=== PATIENT | female | born 1940 | race Caucasian/White ===

== ENCOUNTER 2021-09-05 04:56 | Observation (INO) ==
--- NOTE | 2021-04-29 11:49 | PAT Medication Instructions ---
Medication Instructions Date of Service April 29, 2021 Home Medications amlodipine 10 mg tablet 10 mg PO PM gnhxriq-dhwxhtsmi-ytpw tablet 1 tab PO PM esomeprazole magnesium 20 mg capsule,delayed release (Nexium) 40 mg PO QAM hydrochlorothiazide 25 mg tablet 25 mg PO QAM ibuprofen 200 mg tablet 600 mg PO BID levothyroxine 88 mcg tablet 88 mcg PO QAM linagliptin 5 mg tablet (Tradjenta) 5 mg PO QAM losartan 100 mg tablet 100 mg PO QAM metformin 500 mg tablet 1,000 mg PO BID multivitamin 1 tab PO QAM rosuvastatin 10 mg tablet 10 mg PO PM ASK your surgeon for instructions ibuprofen 200 mg tablet 600 mg PO BID DO NOT take the morning of surgery multivitamin 1 tab PO QAM metformin 500 mg tablet 1,000 mg PO BID losartan 100 mg tablet 100 mg PO QAM linagliptin 5 mg tablet (Tradjenta) 5 mg PO QAM hydrochlorothiazide 25 mg tablet 25 mg PO QAM Take morning of surgery With a small sip of water, OTHERWISE NOTHING TO EAT OR DRINK AFTER MIDNIGHT: levothyroxine 88 mcg tablet 88 mcg PO QAM esomeprazole magnesium 20 mg capsule,delayed release (Nexium) 40 mg PO QAM Take evening before surgery rosuvastatin 10 mg tablet 10 mg PO PM metformin 500 mg tablet 1,000 mg PO BID glguryt-xhygvwkvl-arub tablet 1 tab PO PM amlodipine 10 mg tablet 10 mg PO PM Other Notes If you have any questions please call us at [phone] or [phone] or [phone] or [phone]
--- NOTE | 2021-05-03 15:09 | Anesthesiology Consultation ---
Date of Service May 03, 2021 Assessment & Plan (1) Encounter for pre-operative examination: - COVID screening: Per assessment on 05/03: Travel screen negative, no known COVID-19 positive contacts or current COVID-19 related symptoms. Patient vacci nated. Surgeon arranging preop COVID testing. Awaiting results. - Check BSG AM DOS Chart Review Chart Review: Acceptable Risk for Surgery (pending most recent cardiology office visit note) and Patient seen in Pre Admission Testing Teaching & Discussion Pre-Anesthesia Teaching/Discussion Notes: Instructed NPO after midnight before surgery,except medications with 15 cc of water. Medication instructions provided according to the PAT guidelines. History Surgery Operation Date: 05/30/21 08:15 Proposed Procedures p Right Total Hip Arthroplasty - Juliano Singh MD Height/Weight Height: 5 ft 4 in Weight: 84.9 kg Allergies Allergy/AdvReac Type Severity Reaction Status Date / Time lisinopril AdvReac Mild Cough Verified 05/01/21 15:14 Medications Home Medications Medication Instructions Recorded Confirmed Last Taken amlodipine 10 mg tablet 10 mg PO PM 04/26/21 04/26/21 Unknown txbbawe-mjqhrbxbp-gaor tablet 1 tab PO PM 04/26/21 04/26/21 Unknown esomeprazole magnesium 20 mg 40 mg PO QAM 04/26/21 04/26/21 Unknown capsule,delayed release (Nexium) hydrochlorothiazide 25 mg tablet 25 mg PO QAM 04/26/21 04/26/21 Unknown ibuprofen 200 mg tablet 600 mg PO BID 04/26/21 04/26/21 Unknown levothyroxine 88 mcg tablet 88 mcg PO QAM 04/26/21 04/26/21 Unknown linagliptin 5 mg tablet (Tradjenta) 5 mg PO QAM 04/26/21 04/26/21 Unknown losartan 100 mg tablet 100 mg PO QAM 04/26/21 04/26/21 Unknown metformin 500 mg tablet 1,000 mg PO BID 04/26/21 04/26/21 Unknown multivitamin 1 tab PO QAM 04/26/21 04/26/21 Unknown rosuvastatin 10 mg tablet 10 mg PO PM 04/26/21 04/26/21 Unknown Past Medical History Medical History Diabetes mellitus, type 2 NIDDM GERD (gastroesophageal reflux disease) Hiatal hernia History of COVID-19 Dx May 2020 > symptoms at time of: congestion ("very mild") > resolved Hyperlipidemia Hypertension Hypothyroidism Obesity Osteoarthritis Sleep apnea "Very mild" per pt > no device Exercise / Class Metabolic Activity III < 4 Walking/Shop/Light housework (one FS (no CP, very mild SOB)) Past Family History Family History Mother Diabetes Stroke Father Diabetes Stroke Past Surgical History Surgical History H/O bilateral oophorectomy History of appendectomy History of arthroscopy left shoulder History of cholecystectomy History of colonoscopy History of endoscopic sinus surgery History of hysterectomy History of lumbar fusion L4-S1 History of tooth extraction History of total hip arthroplasty left Hx of arthroscopy of right knee Past Anesthesia History No Hx of Anesthesia Complications and No Family Hx of Anesthesia Complications History of PONV No Hx of PONV and No Hx of Motion Sickness Social History Smoking Status: Never smoker Do You Dip or Chew Tobacco: No Hx Alcohol Use: No Hx Substance Use: No substance use type: does not use Review of Systems Patient denies chest pain, shortness of breath, dyspnea on exertion, fever, chills, cough, wheezing, palpitations. Physical Exam Vital Signs VITALS BP 134/69 P 64 TEMP 98.5 SP02 96%RA RESP 16 PHYSICAL Mildly decreased cervical extension range of motion. Full TMJ range of motion. TMD 2.5 finger breaths Mallampati Score 3 Dentition: missing sides, + crowns Lungs: clear throughout to auscultation Cardiac: regular rate and rhythm, no murmurs noted Spine: normal Carotid arteries: negative bruit Extremities: no edema Lab Results Anesthesia Preop Results Results Anesthesia Widget: WBC 6.91 K/uL (4.8-10.8) 05/03/21 Hgb 12.5 g/dL (12.0-16.0) 05/03/21 Hct 37.9 % (37-47) 05/03/21 Plt 389 K/uL (130-400) 05/03/21 Na 137 mmol/L (136-145) 05/03/21 K 4.2 mmol/L (3.5-5.1) 05/03/21 Cl 104 mmol/L (98-107) 05/03/21 CO2 23 mmol/L (21-32) 05/03/21 BUN 15 mg/dl (7-18) 05/03/21 Creat 0.73 mg/dl (0.6-1.2) 05/03/21 Glucose Level 131 mg/dl (70-99) H 05/03/21 PT 9.9 Seconds (9.0-12.0) 05/03/21 PTT 25.2 Seconds (21.0-31.0) 05/03/21 INR 1.0 (0.9-1.1) 05/03/21 HA1c 8.1 % (4.5-5.6) H 05/03/21 Urine Color Yellow 05/03/21 Urine Appearance Clear (Clear) 05/03/21 Urine pH 6.5 (4.5-7.5) 05/03/21 Urine Specific [place] 1.015 (1.000-1.030) 05/03/21 Urine Protein Negative (Negative) 05/03/21 Urine Glucose (UA) Negative (Negative) 05/03/21 Urine Ketones Negative (Negative) 05/03/21 Urine Blood Negative (Negative) 05/03/21 Urine Nitrite Negative (Negative) 05/03/21 Urine Bilirubin Negative (Negative) 05/03/21 Urine Urobilinogen Negative (Negative) 05/03/21 Urine Leukocyte Esterase 2+ (Negative) H 05/03/21 Urine WBC (Auto) 10-30 /hpf (0-5) H 05/03/21 Urine RBC (Auto) 0-4 /hpf (0-4) 05/03/21 Urine Hyaline Casts (Auto) 0 /lpf (0-5) 05/03/21 Urine Epithelial Cells (Auto) 10-20 /lpf (0-5) H 05/03/21 Urine Bacteria (Auto) Negative (Negative) 05/03/21 Blood Type A Positive 05/03/21 Antibody Screen NEGATIVE 05/03/21 Testing Electrocardiogram Date: 01/02/21 Normal sinus rhythm at 63 bpm. Cannot rule out anterior infarct, age und etermined. Echocardiogram Date: 04/04/20 LVEF 60%. Mild LAD. Mild RAD. Mild MR. Stress Test Date: 04/04/20 Type: nuclear No evidence of myocardial ischemia or infarction. LVEF 73%.
--- NOTE | 2021-08-16 11:26 | History & Physical Report ---
Date of Service August 16, 2021 Assessment & Plan (1) Osteoarthritis of right hip: Plan: PRE-OP Diagnosis: Right hip osteoarthritis Planned Procedure: Right total hip arthroplasty Plan: Patient is scheduled to undergo this procedure at the [facility] on September 05, [address] Juliano Singh. Risks and complications of the procedure such as: Infection, bleeding, pain, scarring, nerve blood vessel damage, weakness, wound problems, stiffness, incomplete relief of symptoms, hardware failure, hardware loosening, wear, fracture, tendon or ligament injury, dislocation, leg length inequality, blood clots, embolism, heart attack, stroke and were explained the patient at her visit today. Informed consent form procedure was obtained. Patient also understands risks of proceeding with surgical regimen during the COVID-19 pandemic. Currently she is asymptomatic and understands that she will need to be tested prior to her surgery. Patient states she is scheduled to see her security consultant Dr. Pierre early next week. She states that she saw her primary care provider Dr. Ortega in late June. We will fax that she to both of their offices for clearance.. He is already met with anesthesia back in May 2021, however her laboratory tests will need to be updated. She plans on going to the hospital upon departure from our clinic and while there she will obtain a CBC with differential, complete metabolic panel, PT/INR, blood type and screen, urinalysis, urine culture and sensitivity, EKG, hemoglobin A1c and a nasal culture for MRSA. During today's visit we reviewed the total hip packet, talked about total hip precautions, discussed in-home physical therapy following surgery for the first 2 weeks, talked about purchasing a walker and a hip kit and to bring both with her on the day of the procedure. We also talked about antibiotic use following total joint surgery as well as lectures offered by [facility] in regards to total joint arthroplasty. I offered the patient paperwork to obtain a handicap placard for her vehicle but states that they have a permanent 1. I advised the patient that she will be discharged in the hospital with a narcotic pain medication, and anti-inflammatory medication we recommend that she supplement for pain with extra Tylenol and use baby aspirin twice daily for blood clot prevention for the first 30 days postoperatively. Patient is scheduled for 2-week postoperative follow-up with myself on September 20 at 1 PM. If she has questions or concerns should arise prior to her surgery, she will contact the clinic. History of Present Illness Chief Complaint: Chief Complaint: Right hip pain Primary Care Provider: Milla Olivera DO History of Present Illness (including history relevant to procedure): This 81-year-old female presents the clinic today for preoperative history and physical. Patient has had pain in her right hip since the December 2020. Patient refers most of her pain to the groin area with intermittent radiation into the anterior and lateral aspect of her hip. Patient has failed conservative management with use of nonsteroidal agents and a few corticosteroid injections. Patient states that the pain is causing him difficulty with ambulation and is starting to affect her activities of daily living. Patient was initially scheduled to have this procedure done in May of 2021, however her surgery canceled due to her hemoglobin A1c being 8.6. Patient's most recent A1c was 6.7 and she has lost 20 pounds since her last visit. She states she has been exercising more and change her diet completely. Review Of Systems: A 12 point review of systems performed is unremarkable except for those things stated in the HPI and past medical history. Past Medical History: Problems: Pre-op exam Arthritis of right hip Left hip pain Trochanteric bursitis H/O: artificial joint Pain Post-menopause Shoulder pain Hypothyroidism Hyperlipidemia GERD Anesthesia complication Knee pain, left Hip pain, left Shoulder pain, right Ankle injury DM (diabetes mellitus) HTN (hypertension) Procedure History Procedure Procedure Date Comments THR - Total hip replacement 02/22/2008 - left Back fusion 07/25/2005 - L4-L5 Right knee arthroscopy 1987 Cholecystectomy 1979 Hysterectomy 1973 Appendectomy 1959 Allergies and Sensitivities: NKA Social history: Completely unremarkable Family history: Diabetes, cancer and stroke Current Home Meds: (Last Updated 05/03 14:05) amlodipine (amlodipine 10 mg oral tablet) 10 mg PO Daily esomeprazole (NexIUM 40 mg oral delayed release capsule) 40 mg PO Daily hydrochlorothiazide (hydrochlorothiazide 25 mg oral tablet) 25 mg PO Daily levothyroxine (levothyroxine 100 mcg (0.1 mg) oral tablet) 100 mcg PO Daily linagliptin (Tradjenta) losartan (Cozaar 100 mg oral tablet) 100 mg PO Daily metformin (metformin 500 mg oral tablet) 1,000 mg PO bid rosuvastatin (Crestor 10 mg oral tablet) 10 mg PO qhs Initial Wt: 08/14 78.1 kg 172 lb Allergies Allergy/AdvReac Type Severity Reaction Status Date / Time lisinopril AdvReac Mild Cough Verified 05/01/21 15:14 Home Medications Medication Instructions Recorded Confirmed Type amlodipine 10 mg tablet 10 mg PO PM 04/26/21 04/26/21 History emdiwvi-nqncnahsm-vnvr tablet 1 tab PO PM 04/26/21 04/26/21 History esomeprazole magnesium 20 mg 40 mg PO QAM 04/26/21 04/26/21 History capsule,delayed release (Nexium) hydrochlorothiazide 25 mg tablet 25 mg PO QAM 04/26/21 04/26/21 History ibuprofen 200 mg tablet 600 mg PO BID 04/26/21 04/26/21 History levothyroxine 88 mcg tablet 88 mcg PO QAM 04/26/21 04/26/21 History linagliptin 5 mg tablet (Tradjenta) 5 mg PO QAM 04/26/21 04/26/21 History losartan 100 mg tablet 100 mg PO QAM 04/26/21 04/26/21 History metformin 500 mg tablet 1,000 mg PO BID 04/26/21 04/26/21 History multivitamin 1 tab PO QAM 04/26/21 04/26/21 History rosuvastatin 10 mg tablet 10 mg PO PM 04/26/21 04/26/21 History Past Med/Surg History Medical History Diabetes mellitus, type 2 NIDDM GERD (gastroesophageal reflux disease) Hiatal hernia History of COVID-19 Dx May 2020 > symptoms at time of: congestion ("very mild") > resolved Hyperlipidemia Hypertension Hypothyroidism Obesity Osteoarthritis Sleep apnea "Very mild" per pt > no device Surgical History H/O bilateral oophorectomy History of appendectomy History of arthroscopy left shoulder History of cholecystectomy History of colonoscopy History of endoscopic sinus surgery History of hysterectomy History of lumbar fusion L4-S1 History of tooth extraction History of total hip arthroplasty left Hx of arthroscopy of right knee Family History Mother Diabetes Stroke Father Diabetes Stroke Social History Smoking Status: Never smoker Second Hand Exposure: No; Hx Alcohol Use: No Hx Substance Use: No Preferred Language: [place]ambian Communication Ability: Effective Pipe Fitter Helper Required: No Beliefs That Will Affect Care: None Current Living Situation: Spouse Feels Safe at Home: Yes Assistive Devices: Cane, Glasses and Hearing Aid - Bilateral Review of Systems All systems reviewed & are unremarkable except as noted in Subjective Physical Exam Physical Exam: Physical Exam: (relevant to the procedure, including heart and lung evaluation) General: Alert and oriented x3 with proper grooming and hygiene Eyes: Pupils are equal and reactive to light accommodation. Extraocular movements are intact Throat: Deferred due to COVID-19 precautions Cardiac: Regular rate and rhythm with no murmurs or gallops appreciated Lungs: Clear to auscultation throughout no wheezing, rales or rhonchi Abdomen: Mildly obese, nondistended, nontender with normoactive bowel sounds Extremities: Right hip; flexion to 92 degrees, external rotation to 50 degrees, internal rotation to 0 degrees. Logroll test, Stinchfield test and scour impingement tests are all positive. Patient has tenderness to palpation in the groin area. She is neurovascular intact right lower extremity Neuro: Cranial nerves II through XII are intact with no motor or sensory deficit Skin: Normal in appearance with no open skin areas or discharge Results & Data ([facility]) Diagnostic Findings Studies (relevant to the procedure): X-rays of the patient's right hip demonstrate central pattern osteoarthritis with joint space narrowing subchondral sclerosis consistent with severe hip osteoarthritis.
--- NOTE | 2021-08-26 15:18 | Anesthesiology Consultation ---
Date of Service August 26, 2021 Assessment & Plan (1) Encounter for pre-operative examination: - check BSG am DOS. - awaiting last cardiology note. - COVID screening: Per brick paving checker on 08/26/2021: Travel screen negative, no known COVID-19 positive contacts or current COVID-19 related symptoms in past 2 weeks. Patient vaccinated. Surgeon arranging preop COVID testing, scheduled 09/03/2021. Awaiting results. Chart Review Chart Review: Pending: Refer to Additional Notes / Consult section and Patient NOT seen in Pre Admission Testing History Surgery Operation Date: 09/05/21 07:00 Proposed Procedures p Right Total Hip Arthroplasty - Juliano Singh MD Surgery re-scheduled. PAT eval 04/2021. Height/Weight Height: 5 ft 4 in Weight: 77.111 kg Allergies Allergy/AdvReac Type Severity Reaction Status Date / Time lisinopril AdvReac Mild Cough Verified 08/26/21 12:56 Medications Home Medications Medication Instructions Recorded Confirmed Last Taken amlodipine 10 mg tablet 10 mg PO PM 04/26/21 08/26/21 Unknown hkzioqr-iscxhiyiq-qlgm tablet 1 tab PO PM 04/26/21 08/26/21 Unknown esomeprazole magnesium 20 mg 40 mg PO QAM 04/26/21 08/26/21 Unknown capsule,delayed release (Nexium) hydrochlorothiazide 25 mg tablet 25 mg PO QAM 04/26/21 08/26/21 Unknown ibuprofen 200 mg tablet 600 mg PO BID 04/26/21 08/26/21 Unknown levothyroxine 88 mcg tablet 88 mcg PO QAM 04/26/21 08/26/21 Unknown linagliptin 5 mg tablet (Tradjenta) 5 mg PO QAM 04/26/21 08/26/21 Unknown losartan 100 mg tablet 100 mg PO QAM 04/26/21 08/26/21 Unknown metformin 500 mg tablet 1,000 mg PO BID 04/26/21 08/26/21 Unknown multivitamin 1 tab PO QAM 04/26/21 08/26/21 Unknown rosuvastatin 10 mg tablet 10 mg PO PM 04/26/21 08/26/21 Unknown empagliflozin 25 mg tablet 25 mg PO QAM 08/26/21 08/26/21 Unknown (Jardiance) Past Medical History Medical History Diabetes mellitus, type 2 NIDDM GERD (gastroesophageal reflux disease) Hiatal hernia History of COVID-19 Dx May 2020 > symptoms at time of: congestion ("very mild") > resolved Hyperlipidemia Hypertension Hypothyroidism Obesity Osteoarthritis Sleep apnea "Very mild" per pt > no device Exercise / Class Metabolic Activity II 4-5 Yardwork/Stairs/Walk up hill (per 04/2021 PAT note-"very mild SOB", no CP with 1 FS) Past Family History Family History Mother Diabetes Stroke Father Diabetes Stroke Past Surgical History Surgical History H/O bilateral oophorectomy History of appendectomy History of arthroscopy left shoulder History of cholecystectomy History of colonoscopy History of endoscopic sinus surgery History of hysterectomy History of lumbar fusion L4-S1 History of tooth extraction History of total hip arthroplasty left Hx of arthroscopy of right knee Social History Smoking Status: Never smoker Do You Dip or Chew Tobacco: No Hx Alcohol Use: No Hx Substance Use: No substance use type: does not use Lab Results Anesthesia Preop Results Results Anesthesia Widget: WBC 6.83 K/uL (4.8-10.8) 08/14/21 Hgb 14.0 g/dL (12.0-16.0) 08/14/21 Hct 44.0 % (37-47) 08/14/21 Plt 403 K/uL (130-400) H 08/14/21 Na 137 mmol/L (136-145) 08/14/21 K 3.9 mmol/L (3.5-5.1) 08/14/21 Cl 102 mmol/L (98-107) 08/14/21 CO2 26 mmol/L (21-32) 08/14/21 BUN 19 mg/dl (6-23) 08/14/21 Creat 0.82 mg/dl (0.6-1.2) 08/14/21 Glucose Level 129 mg/dl (70-99(Fasting)) H 08/14/21 PT 10.0 Seconds (9.0-12.0) 08/14/21 INR 1.0 (0.9-1.1) 08/14/21 HA1c 6.7 % (4.5-5.6) H 08/14/21 Urine Color Yellow 08/14/21 Urine Appearance Clear (Clear) 08/14/21 Urine pH 6.5 (4.5-7.5) 08/14/21 Urine Specific [place] 1.028 (1.000-1.030) 08/14/21 Urine Protein Negative (Negative) 08/14/21 Urine Glucose (UA) 3+ (Negative) H 08/14/21 Urine Ketones Negative (Negative) 08/14/21 Urine Blood Negative (Negative) 08/14/21 Urine Nitrite Negative (Negative) 08/14/21 Urine Bilirubin Negative (Negative) 08/14/21 Urine Urobilinogen Negative (Negative) 08/14/21 Urine Leukocyte Esterase 2+ (Negative) H 08/14/21 Urine WBC (Auto) >30 /hpf (0-5) H 08/14/21 Urine RBC (Auto) 5-10 /hpf (0-4) H 08/14/21 Urine Hyaline Casts (Auto) 1-5 /lpf (0-5) 08/14/21 Urine Epithelial Cells (Auto) 10-20 /lpf (0-5) H 08/14/21 Urine Bacteria (Auto) Negative (Negative) 08/14/21 Lab Comments: Manasa at surgeon's office aware of abnormal UA. Testing Electrocardiogram Date: 01/02/21 Normal sinus rhythm at 63 bpm. Cannot rule out anterior infarct, age undetermined. Echocardiogram Date: 04/04/20 LVEF 60%. Mild LAD. Mild RAD. Mild MR. Stress Test Date: 04/04/20 Type: nuclear No evidence of myocardial ischemia or infarction. LVEF 73%.
[2021-09-05] MEDS ORDERED: TRANEXAMIC ACID 1,000 MG **IV Intra-op IV SCH (06:00)
[2021-09-05] MEDS ORDERED: LR 60ML/HR IV SCH (06:00)
[2021-09-05] MEDS ORDERED: FAMOTIDINE 20 MG TAB PO SCH (06:00)
[2021-09-05] MEDS ORDERED: Scopolamine 1 MG TDSY TD SCH (06:00)
[2021-09-05] MEDS ORDERED: LR 500ML BOLUS, THEN 15ML/HR IV SCH (06:00)
[2021-09-05] MEDS ORDERED: TRANEXAMIC ACID 1,000 MG **IV Pre-op IV SCH (06:00)
[2021-09-05] MEDS ORDERED: traMADol HCL 50 MG TABLET PO SCH (06:00)
[2021-09-05] MEDS ORDERED: ACETAMINOPHEN 500 MG TAB PO SCH (06:00)
[2021-09-05] MEDS ORDERED: ceFAZolin 2000MG 2,000 MG/15 ML SYR IV SCH (06:00)
[2021-09-05] MEDS ORDERED: ROPIVACAINE 0.5% HCL/PF 150 MG, BUPIVACAINE 0.75% MPF 20 ML, EPINEPHrine 0.15 MG, Ketor... INFIL SCH (06:00)
[2021-09-05] MEDS ORDERED: BUPIVACAINE 0.5 % 5 MG/1 ML PF 10ML VIAL ONE (06:26)
[2021-09-05] MEDS ORDERED: PROPOFOL IV EMULSION 10 MG/ML 20 ML VIAL IV ONE ×2 (06:38→08:35)
[2021-09-05] MEDS ORDERED: MIDAZOLAM HCL 1 MG/ML 2ML VIAL ONE ×2 (06:38→07:28)
[2021-09-05] MEDS ORDERED: fentaNYL citrate 100 MCG/2 ML VIAL ONE (06:38)
[2021-09-05] MEDS ORDERED: LIDOCAINE 2% 2 ML VIAL/AMP(20MG/ML) INFIL ONE (06:38)
--- NOTE | 2021-09-05 06:40 | History & Physical Bridge Note ---
Date of Service September 05, 2021 History & Physical Bridge Note I have examined the patient, reviewed the History & Physical and in the interval since the performance of the History & Physical I have noted the following changes of clinical significance: no changes noted
[2021-09-05] MEDS ORDERED: ORTHO JOINT ANESTHETIC ONE (06:49)
[2021-09-05] MEDS ORDERED: ePHEDrine sulfate 50 MG/ML AMP IV PRN (08:00)
[2021-09-05] MEDS ORDERED: ATROPINE SULFATE 0.1 MG/ML 10ML SYR IV PRN (08:00)
[2021-09-05] MEDS ORDERED: PHENYLEPHRINE 100MCG/ML 5ML SYR ONE (08:35)
[2021-09-05] MEDS ORDERED: bisacodyL 10 MG SUPP PR PRN (09:17)
[2021-09-05] MEDS ORDERED: NALOXONE HCL 0.4 MG/1 ML VIAL/CARP IV PRN (09:17)
[2021-09-05] MEDS ORDERED: diphenhydrAMINE 50 MG/ML VIAL IV PRN (09:17)
[2021-09-05] MEDS ORDERED: ONDANSETRON INJ 2 MG/ML 2 ML VIAL IV PRN (09:17)
[2021-09-05] MEDS ORDERED: METOCLOPRAMIDE HCL INJ 5 MG/ML 2 ML VIAL IV PRN (09:17)
[2021-09-05] MEDS ORDERED: MAGNESIUM HYDROXIDE SUSP 30 ML UDC PO PRN (09:17)
--- NOTE | 2021-09-05 09:17 | Operative Report ---
Post Operative Report Pre & Post Diagnosis Operation Date: 09/05/21 07:00 Pre-Op Diagnosis: Osteoarthritis of right hip Post-Op Diagnosis: Osteoarthritis of right hip I identified the patient and participated in the time-out.: Yes Procedure Operation Date: 09/05/21 07:00 Actual Procedures p Right Total Hip Arthroplasty(Right) - Juliano Singh MD Surgeon Juliano Singh MD Flexo Press Operator Jerilyn Singh MD; Cecilia Adrian PA-C Estimated Blood Loss 150 Findings Consistent with Post-Op Diagnosis Specimens femoral head Description of Procedure I was present during the entire procedure assisting with positioning, prepping, draping, wound retraction, wound closure, dressing and abduction pillow placement. Fellow also present. I served as an extra set of hands during the case. Please see Dr. Singh procedure note for specifics of the case. I attest to the content of the Intraoperative Record and any orders documented therein. Any exceptions are noted below.
--- NOTE | 2021-09-05 09:17 | Operative Report ---
Post Operative Report Pre & Post Diagnosis Operation Date: 09/05/21 07:00 Pre-Op Diagnosis: Osteoarthritis of right hip Post-Op Diagnosis: Osteoarthritis of right hip I identified the patient and participated in the time-out.: Yes Procedure Operation Date: 09/05/21 07:00 Actual Procedures p Right Total Hip Arthroplasty(Right) - Juliano Singh MD Surgeon Arnold Singh Body Art Technician KIRA Rodríguez Estimated Blood Loss 150 Findings Consistent with Post-Op Diagnosis Consistent with post op diagnosis Specimens No specimens Description of Procedure I participated in prepping dressing and assisted Dr. Singh during the procedure. Please see Dr. Singh note I attest to the content of the Intraoperative Record and any orders documented therein. Any exceptions are noted below. Supervising Physician Co-Signing Physician Notes Dr. Singh
--- NOTE | 2021-09-05 09:17 | Operative Report ---
Post Operative Report Pre & Post Diagnosis Operation Date: 09/05/21 07:00 Pre-Op Diagnosis: Osteoarthritis of right hip Post-Op Diagnosis: Osteoarthritis of right hip I identified the patient and participated in the time-out.: Yes Procedure Operation Date: 09/05/21 07:00 Actual Procedures p Right Total Hip Arthroplasty(Right) 22 modifier should be added to the case due to the increased difficulty secondary to high risk for postoperative instability due to her age, female gender, and history of posterior spinal fusion. - Juliano Singh MD Surgeon Juliano Singh MD Handle Machine Operator Jerilyn Singh MD and KIRA Adrian PA-C Estimated Blood Loss 150 Findings Consistent with Post-Op Diagnosis Specimens Right femoral head Anesthesia Type Spinal MAC Complications none Disposition Disposition: Recovery Room Indications 81-year-old female with right hip arthritis refractory to conservative management. X-rays demonstrate [id number] disease. She is at high risk for dislocation due to her age, female gender, and history of posterior spinal fusion. I had a long discussion with her about the risks and benefits of surgery, alternatives of surgery, and expected outcomes. After reviewing all these she elected to proceed with surgery. All questions were answered. Informed consent was signed. Description of Procedure Patient was identified in the preoperative holding area and the surgical site, right hip, was marked. A spinal anesthetic was placed, then the patient was brought back to the main operating room, placed in the operating table and I checked her leg lengths, which showed her to be about 8-10 mm longer on the right operative side than the left. She was then carefully moved into the lateral decubitus position. Fixed lumbar lordosis was noted due to her post erior spinal fusion, placing her at elevated risk for postoperative dislocation. Axillary roll was placed. All bony prominences were padded. Perioperative antibiotics and tranexamic acid 1 gram IV were administered. Operative extremity was prepped and draped in the normal sterile fashion. Prior to incision a multidisciplinary timeout was called. All in the room were in agreement. We began by making an incision for a posterior approach to the hip. We dissected down through subcutaneous tissues to the level of the fascia. She had significant subcutaneous fat, 3.5 to 4 inches thick. The fascia was incised in line with the incision. Charnley bow was placed. The trochanteric bursa was excised. The piriformis and short external rotators were dissected off the posterior aspect of the hip. A box cut was made in the capsule. The femoral head was dislocated. The femoral neck cut was made at our preoperative template. The acetabulum was then exposed. The labrum was sharply excised. Contents of the cotyloid fossa were removed with electrocautery. We then began reaming at a size 8 mm less than our preoperative template. We reamed up by [address] way up to a size 52 mm cup. This gave us good bleeding cancellus bone circumferentially. The acetabulum was then irrigated out and dried. The real [place] Gription cup was then impacted down into position with 45 degrees of lateral opening and 30 degrees of anteversion. I gave her a little extra anteversion due to her posterior spinal fusion, advanced age, and female gender placing her at risk for postoperative dislocation. A single cancellous bone screw was placed up into the ilium. Excellent fixation was obtained. We then placed a trial liner for the constrained liner which has a +4 offset. Next we turned our attention to the femur. The lateral neck was removed with a box osteotome. Intramedullary guide was used followed by the lateralizing reamer. We then reamed up to a size 2 Towns stem. She has a size 1 summit on her other hip, however, the size 1 broach was loose in the femoral canal, so we broached up to a size 2. We then placed a trial standard offset neck and a +1.5 head. The was the smallest amount of offset for this system. We then tried to reduce the hip, but were not able to. I therefore decided to switch from a constrained liner to a dual mobility cup, which does not have a +4 offset. The femoral trial was removed and the acetabulum was re-exposed. The trial liner for the constrained liner was removed, and the dual mobility liner was placed. The femur was re-exposed, and the size 2 femoral broach was placed back in the femur. A trial standard offset neck and dual mobility head was placed. Now we were able to reduce the hip with only a little difficulty due to the increased anteversion of the cup. Leg lengths showed her to be slightly longer on the right than left, but similar to her pre-op exam. The hip was stable in extension and external rotation, and stable in the sleeper position. At 90 degrees of hip flexion the hip could be maximally internally rotated and remained located. A bone hook was required to dislocate the femoral trial. I was very happy with the stability exam. Therefore the femoral trial was removed and the femoral canal was irrigated and dried. The acetabulum was re-exposed, and the trial liner was removed. The metal liner for the dual mobility cup was then placed and malleted into the shell, engaging the ugalde taper appropriately. The femur was re-exposed. The real size 2 standard offset Towns femoral stem was opened up and impacted down into position. It sat at the same level as the femoral trial. Therefore the 22 mm femoral head with a +4 mm offset and 45/52 Bimentum polyethylene liner were locked together on the back table, then gently impacted down onto the trunnion. The hip was atraumatically reduced. Another 1 gram of IV tranexamic acid was started prior to closure. The wound was irrigated out with sterile Betadine solution. The periarticular injection cocktail was then placed. The short external rotators, piriformis, and posterior capsule were repaired through drill holes in the greater trochanter using #2 Vicryl. The fascia was run with a looped #1 PDS. The subcutaneous layer was closed with running #1 PDS in 2 layers due to her thick subcutaneous fat layer. The dermal layer was closed with 2-0 Vicryl. Zip line was used for the skin followed by a Silverlon dressing. A compressive dressing was then placed. The patient was then rolled supine. Leg lengths were rechecked and were symmetric. An abduction pillow was placed. Sedation was lifted and the patient was transferred to recovery room in stable condition. Summary of implants: Depuy [place] Gription Acetabular Shell Sector Cup, 52 mm outer diameter [place] Cancellous bone screw, 6.5 x 40 mm Depuy Bimentum polyethylene liner 45/52 Articuleze femoral head, 22.225 mm diameter with +4 offset DePuy Towns Femoral stem with [place], 12/14 taper, size 2 standard offset Postoperative course: Patient will be admitted to the hospital from the recovery room. Patient will be weightbearing as tolerated with posterior hip precautions. Aspirin for DVT prophylaxis I attest to the content of the Intraoperative Record and any orders documented therein. Any exceptions are noted below.
--- NOTE | 2021-09-05 09:46 | Anesthesiology Progress Note ---
Date of Service September 05, 2021 Anesthesia Post Procedure Vital Signs Vital Signs: Temp Pulse Pulse Resp BP BP Pulse Ox 09/05/21 09:35 53 L 19 132/59 L 98 09/05/21 09:25 52 L 15 140/72 100 09/05/21 09:15 36.0 C L 54 L 20 129/63 99 09/05/21 05:42 36.8 C 66 18 150/66 H 97 Transfer of Care Handoff Completed per policy Notes Mental Status: alert / awake / arousable Patient Amnestic to Procedure: Yes Nausea / Vomiting: adequately controlled Pain: adequately controlled Airway Patency, RR, SpO2: stable & adequate BP & HR: stable & adequate Hydration State: stable & adequate Neuraxial Anesthesia: was administered and sensory block is resolving Anesthetic Complications: no major complications apparent
--- NOTE | 2021-09-05 09:49 | XRay Report ---
XR pelvis 1-2V routine CLINICAL HISTORY: Post Surgical. Status post right hip replacement COMPARISON STUDY: 05/03/2021 TECHNIQUE: [A single AP radiograph was obtained. FINDINGS: There is no evidence for an acute fracture. There are now bilateral total hip replacements with nonce mented components. The prosthetic components are in anatomic alignment. The remaining visualized bone s of the pelvis are intact. No focal soft tissue abnormalities identified. IMPRESSION: 1. Status post interval right hip replacement. ACT 112: Negative or not required by law. Electronically signed by: Meek Hoyos M.D. 09/05/2021 9:47 AM
[2021-09-05] MEDS: KETOROLAC TROMETHAMINE 15 MG/ML VIAL IV SCH ×3 (11:28→22:32)
[2021-09-05] MEDS: SODIUM CHLORIDE 0.9% 1000ML 1,000 ML IV SCH ×2 (13:51→20:09)
[2021-09-05] MEDS: oxyCODONE HCL IR 5 MG TAB (IMMEDIATE RELEASE) PO PRN (13:56)
[2021-09-05] MEDS: ACETAMINOPHEN 500 MG TAB PO SCH ×2 (14:32→22:32)
[2021-09-05] MEDS ORDERED: TRANEXAMIC ACID / 0.7% NACL 1,000 MG/100 ML BAG IV SCH (15:30)
[2021-09-05] MEDS: ceFAZolin 2000MG 2,000 MG/15 ML SYR IV SCH ×2 (15:47→22:32)
[2021-09-05] MEDS: Scopolamine CHECK PATCH PLACEMENT SCH (15:50)
[2021-09-05] MEDS: DOCUSATE SODIUM 100 MG CAP PO SCH (20:06)
[2021-09-05] MEDS: metFORMIN HCL 500 MG TAB PO SCH (20:06)
[2021-09-05] MEDS ORDERED: SENNA 8.6 MG TAB PO SCH (21:00)
[2021-09-05] MEDS ORDERED: amLODIPine BESYLATE 5 MG TAB PO SCH (21:00)
[2021-09-05] MEDS ORDERED: NON-FORMULARY MEDICATION (Calcium-Magnesium-Zinc Tablet) PO SCH (21:00)
[2021-09-05] MEDS ORDERED: ROSUVASTATIN CALCIUM 10 MG TAB PO SCH (21:00)
[2021-09-06] MEDS: Scopolamine CHECK PATCH PLACEMENT SCH ×2 (01:45→08:32)
[2021-09-06] MEDS: oxyCODONE HCL IR 5 MG TAB (IMMEDIATE RELEASE) PO PRN ×2 (01:45→10:24)
[2021-09-06] MEDS: ACETAMINOPHEN 500 MG TAB PO SCH (05:29)
[2021-09-06] MEDS: KETOROLAC TROMETHAMINE 15 MG/ML VIAL IV SCH (05:30)
[2021-09-06 06:10] LABS: Basophils # (auto) 0.01 K/uL (0-0.2); Basophils % (auto) 0.1 %; Eosinophils # (auto) 0.04 K/uL (0-0.5); Eosinophils % (auto) 0.5 %; Hematocrit (blood only) 34.8 % (37-47); Hemoglobin 11.5 g/dL (12.0-16.0); Immature Granulocytes # (auto) 0.01 K/uL (0.00-0.02); Immature Granulocytes % (auto) 0.1 %; Lymphocytes # (auto) 0.96 K/uL (1.2-3.4); Lymphocytes % (auto) 12.2 %; Mean Corpuscular Hemoglobin 28.4 pg (25-34); Mean Corpuscular Volume 85.9 fL (80-100); Mean Platelet Volume 10.3 fL (7.4-10.4); Monocytes # (auto) 0.59 K/uL (0.11-0.59); Monocytes % (auto) 7.5 %; Neutrophils # (auto) 6.28 K/uL (1.4-6.5); Neutrophils % (auto) 79.6 %; Platelet Count 324 K/uL (130-400); RDW Coefficient of Variation 15.2 % (11.5-14.5); RDW Standard Deviation 48.4 fL (36.4-46.3); Red Blood Count 4.05 M/uL (4.2-5.4); White Blood Count 7.89 K/uL (4.8-10.8)
[2021-09-06] MEDS ORDERED: LEVOTHYROXINE SODIUM 88 MCG TABLET PO SCH (06:30)
[2021-09-06 07:27] LABS: Creatinine Clr Calc Pharmacy 70.1 ml/min; Est GFR (African American) 97.7 ml/min; Est GFR (Non-African American) 84.3 ml/min; Potassium 3.9 mmol/L (3.5-5.1)
[2021-09-06] MEDS: DOCUSATE SODIUM 100 MG CAP PO SCH (08:32)
[2021-09-06] MEDS: metFORMIN HCL 500 MG TAB PO SCH (08:32)
[2021-09-06] MEDS ORDERED: MULTIVITAMIN TAB PO SCH (09:00)
[2021-09-06] MEDS ORDERED: LOSARTAN POTASSIUM 50 MG TAB PO SCH (09:00)
[2021-09-06] MEDS ORDERED: ASPIRIN 81 MG ECTAB PO SCH (09:00)
[2021-09-06] MEDS ORDERED: hydroCHLOROthiazide 25 MG TAB PO SCH (09:00)
[2021-09-06] MEDS ORDERED: PANTOprazole 40 MG TAB PO SCH (09:00)
[2021-09-06] MEDS ORDERED: NON-FORMULARY MEDICATION (Multivitamin Tablet) PO SCH (09:00)
--- NOTE | 2021-09-06 09:27 | Orthopedic Progress Note ---
Date of Service September 06, 2021 Assessment & Plan (1) S/P total hip arthroplasty: Plan: Total hip precautions were reviewed PT/OT Weightbearing as tolerated with walker assistance DVT prophylaxis with FELISHA stockings and aspirin Pain control with p.o. medication Infection prophylaxis with p.o. antibiotic Ice with easy wrap Abduction pillow use x6 weeks postoperatively Plan on discharge home later today with in-home physical therapy for the first 2 weeks postoperatively. Follow-up with [facility] orthopedics as previously scheduled. With questions contact our clinic at [phone] Admission and Anticipated Discharge Date Admission Date: September 05, 2021 Subjective This 81 -year-old female is day 1 status post right total hip arthroplasty. She states she is doing very well. She states she has been up to use the restroom multiple times. She has no pain with weightbearing using the walker as assistive device. She has yet to do PT and OT this morning. Currently she denies any chest pain, shortness of breath, fever, chills, sweats, lethargy, numbness or tingling in her right lower extremity. She also denies nausea, vomiting, diarrhea or difficulty voiding. Review of Systems Review of Systems: All systems reviewed & are unremarkable except as noted in Subjective Physical Exam Physical Exam: Right hip: Outer dressing was removed. Silverlon is intact clean and dry in appearance. Patient is able to perform an active straight leg raise test. She is able to actively dorsi and plantarflex her foot without difficulty. Quad strength is 3 out of 5. Knee range of motion from 0 to 90 degrees causes no pain. Logroll test negative. Light passive internal and external hip rotation causes no pain. Patient is neurovascularly intact in the right lower extremity. Results & Data ([facility]) Vital Signs (Past 12 Hours) Vital Signs Temp Pulse Resp BP BP Pulse Ox 09/06/21 07:14 36.6 C 53 L 14 118/61 96 09/06/21 04:46 36.9 C 57 L 16 137/76 97 09/05/21 22:29 37 C 52 L 16 118/69 94 Diagnostic Findings Laboratory Results WBC 7.89 K/uL (4.8-10.8) 09/06/21 05:50 RBC 4.05 M/uL (4.2-5.4) L 09/06/21 05:50 Hgb 11.5 g/dL (12.0-16.0) L 09/06/21 05:50 Hct 34.8 % (37-47) L 09/06/21 05:50 MCV 85.9 fL (80-100) 09/06/21 05:50 MCH 28.4 pg (25-34) 09/06/21 05:50 MCHC 33.0 g/dL (32-36) 09/06/21 05:50 RDW Std Deviation 48.4 fL (36.4-46.3) H 09/06/21 05:50 RDW Coeff of Ronni 15.2 % (11.5-14.5) H 09/06/21 05:50 Plt Count 324 K/uL (130-400) 09/06/21 05:50 MPV 10.3 fL (7.4-10.4) 09/06/21 05:50 Immature Gran % (Auto) 0.1 % 09/06/21 05:50 Neut % (Auto) 79.6 % 09/06/21 05:50 Lymph % (Auto) 12.2 % 09/06/21 05:50 [place] % (Auto) 7.5 % 09/06/21 05:50 Eos % (Auto) 0.5 % 09/06/21 05:50 Baso % (Auto) 0.1 % 09/06/21 05:50 Neut # (Auto) 6.28 K/uL (1.4-6.5) 09/06/21 05:50 Lymph # (Auto) 0.96 K/uL (1.2-3.4) L 09/06/21 05:50 [place] # (Auto) 0.59 K/uL (0.11-0.59) 09/06/21 05:50 Eos # (Auto) 0.04 K/uL (0-0.5) 09/06/21 05:50 Baso # (Auto) 0.01 K/uL (0-0.2) 09/06/21 05:50 Immature Gran # (Auto) 0.01 K/uL (0.00-0.02) 09/06/21 05:50 Sodium 136 mmol/L (136-145) 09/06/21 05:50 Potassium 3.9 mmol/L (3.5-5.1) 09/06/21 05:50 Chloride 105 mmol/L (98-107) 09/06/21 05:50 Carbon Dioxide 24 mmol/L (21-32) 09/06/21 05:50 Anion Gap 7 (3-11) 09/06/21 05:50 BUN 16 mg/dl (6-23) 09/06/21 05:50 Creatinine 0.64 mg/dl (0.6-1.2) 09/06/21 05:50 Est Cr Clr Drug Dosing 70.1 ml/min 09/06/21 05:50 Est GFR ( Amer) 97.7 ml/min 09/06/21 05:50 Est GFR (Non-Af Amer) 84.3 ml/min 09/06/21 05:50 BUN/Creatinine Ratio 25.0 (10-20) H 09/06/21 05:50 Glucose 131 mg/dl (70-99(Fasting)) H 09/06/21 05:50 POC Glucose 116 mg/dl (70-99) H 09/05/21 11:40 Calcium 9.0 mg/dl (8.5-10.1) 09/06/21 05:50 SARS-CoV-2, RNA, NAAT NEGATIVE (NEGATIVE) 09/05/21 Unknown Impressions Pelvis X-Ray 09/05/21 09:17 XR pelvis 1-2V routine CLINICAL HISTORY: Post Surgical. Status post right hip replacement COMPARISON STUDY: 05/03/2021 TECHNIQUE: [A single AP radiograph was obtained. FINDINGS: There is no evidence for an acute fracture. There are now bilateral total hip replacements with noncemented components. The prosthetic components are in anatomic alignment. The remaining visualized bones of the pelvis are intact. No focal soft tissue abnormalities identified. IMPRESSION: 1. Status post interval right hip replacement. ACT 112: Negative or not required by law. Electronically signed by: Meek Hoyos M.D. 09/05/2021 9:47 AM
--- NOTE | 2021-09-06 09:44 | Discharge Summary ---
Date of Service September 06, 2021 Admission HPI Per Admitting Provider History of Present Illness (including history relevant to procedure): This 81-year-old female presents the clinic today for preoperative history and physical. Patient has had pain in her right hip since the December 2020. Patient refers most of her pain to the groin area with intermittent radiation into the anterior and lateral aspect of her hip. Patient has failed conservative management with use of nonsteroidal agents and a few corticosteroid injections. Patient states that the pain is causing him difficulty with ambulation and is starting to affect her activities of daily living. Patient was initially sched uled to have this procedure done in May of 2021, however her surgery canceled due to her hemoglobin A1c being 8.6. Patient's most recent A1c was 6.7 and she has lost 20 pounds since her last visit. She states she has been exercising more and change her diet completely. Review Of Systems: A 12 point review of systems performed is unremarkable except for those things stated in the HPI and past medical history. Past Medical History: Problems: Pre-op exam Arthritis of right hip Left hip pain Trochanteric bursitis H/O: artificial joint Pain Post-menopause Shoulder pain Hypothyroidism Hyperlipidemia GERD Anesthesia complication Knee pain, left Hip pain, left Shoulder pain, right Ankle injury DM (diabetes mellitus) HTN (hypertension) Procedure History Procedure Procedure Date Comments THR - Total hip replacement 02/22/2008 - left Back fusion 07/25/2005 - L4-L5 Right knee arthroscopy 1987 Cholecystectomy 1979 Hysterectomy 1973 Appendectomy 1959 Allergies and Sensitivities: NKA Social history: Completely unremarkable Family history: Diabetes, cancer and stroke Current Home Meds: (Last Updated 05/03 14:05) amlodipine (amlodipine 10 mg oral tablet) 10 mg PO Daily esomeprazole (NexIUM 40 mg oral delayed release capsule) 40 mg PO Daily hydrochlorothiazide (hydrochlorothiazide 25 mg oral tablet) 25 mg PO Daily levothyroxine (levothyroxine 100 mcg (0.1 mg) oral tablet) 100 mcg PO Daily linagliptin (Tradjenta) losartan (Cozaar 100 mg oral tablet) 100 mg PO Daily metformin (metformin 500 mg oral tablet) 1,000 mg PO bid rosuvastatin (Crestor 10 mg oral tablet) 10 mg PO qhs Initial Wt: 08/14 78.1 kg 172 lb Admission Exam Per Admitting Provider Physical Exam: (relevant to the procedure, including heart and lung evaluation) General: Alert and oriented x3 with proper grooming and hygiene Eyes: Pupils are equal and reactive to light accommodation. Extraocular movements are intact Throat: Deferred due to COVID-19 precautions Cardiac: Regular rate and rhythm with no murmurs or gallops appreciated Lungs: Clear to auscultation throughout no wheezing, rales or rhonchi Abdomen: Mildly obese, nondistended, nontender with normoactive bowel sounds Extremities: Right hip; flexion to 92 degrees, external rotation to 50 degrees, internal rotation to 0 degrees. Logroll test, Stinchfield test and scour impingement tests are all positive. Patient has tenderness to palpation in the groin area. She is neurovascular intact right lower extremity Neuro: Cranial nerves II through XII are intact with no motor or sensory deficit Skin: Normal in appearance with no open skin areas or discharge Principal Diagnosis Right hip osteoarthritis Discharge Exam Right hip: Outer dressing was removed. Silverlon is intact clean and dry in appearance. Patient is able to perform an active straight leg raise test. She is able to actively dorsi and plantarflex her foot without difficulty. Quad strength is 3 out of 5. Knee range of motion from 0 to 90 degrees causes no pain. Logroll test negative. Light passive internal and external hip rotation causes no pain. Patient is neurovascularly intact in the right lower extremity. Discharge Data Allergies Allergy/AdvReac Type Severity Reaction Status Date / Time lisinopril AdvReac Mild Cough Verified 08/26/21 12:56 Procedures Performed Operation Date: 09/05/21 07:00 Actual Procedures p Right Total Hip Arthroplasty(Right) - Juliano Singh MD Hospital Course (1) S/P total hip arthroplasty: Patient had an uneventful overnight stay following right total hip arthroplasty. Patient is doing very well. She is anxious to be discharged home. She is planning on doing in-home physical therapy for the first 2 weeks postoperatively. Total hip precautions were reviewed PT/OT Weightbearing as tolerated with walker assistance DVT prophylaxis with EFLISHA stockings and aspirin Pain control with p.o. medication Infection prophylaxis with p.o. antibiotic Ice with easy wrap Abduction pillow use x6 weeks postoperatively Plan on discharge home later today with in-home physical therapy for the first 2 weeks postoperatively. Follow-up with [facility] orthopedics as previously scheduled. With questions contact our clinic at [phone] Total Time Total Time Spent Total Time Spent (In Minutes): 25 minutes Discharge Plan Discharge Items Patient Disposition: Home - Home Health Services Reason For Visit: Right Hip Arthritis Discharge Diagnosis: Right Hip Osteoarthritis Activity: As commented below Lifting: None Bathing: Keep incision dry Bathing Comment: May shower tomorrow Sexual Activity: Wait until after follow-up appointment Exercise/Sports: Wait until after follow-up appointment Driving/Machine Use: No driving until cleared by health plan specialist Weightbearing Comment: as tolerated with walker assistance Non-emergency contact: Surgeon Call non-emergency contact if: you have any medication questions, your pain is not controlled, your temperature is above 101.5, your wound has increased drainage and your wound pain has increased Follow-up/Referrals: Milla Olivera, [Primary Care Provider] - Diet: Regular Addtl Attending Provider Instructions: Post-operative Instructions Dear Patient and Family/Friends, Before you are discharged from the hospital, it is important to know what to expect when you get home after surgery. To that end, we have created this sheet of discharge instructions which covers many commonly asked questions. Make sure you go through this sheet in its entirety with your nurse before you are discharged. Please note that we will go over the specifics of your surgery and recovery when you return for your first post-operative visit. Sincerely, Dr. Singh Medications 1. Oxycodone 5 mg: take 1-2 tab every 4-6 hrs as needed for pain relief. A prescription for 28 tabs will be sent to your pharmacy. 2. Aspirin 81 mg: take 1 tab twice daily for 30 days post operatively for blood clot prevention. Please purchase. 3. Ibuprofen 200 mg: resume your daily regimen of 600 mg but increase to 3x/day after all meals. 4. Cephalexin 500 mg: take 1 tab 3x/daily for 5 days post operatively for infection prevention. A prescription for this medication will be sent to your pharmacy. 5. Extra Strength Tylenol 500 mg: take 2 tabs every 6-8 hours as needed for additional pain relief. Please purchase. Pain Expect to be in a fair amount of pain after surgery. Remember, our goal is not to eliminate your pain, but to make it tolerable. It is a good idea to stay ahead of your pain by taking the medications you were prescribed once you get home. Typically, the pain starts improving 3-7 days after surgery. You should start weaning off the narcotic pain medication (oxycodone, hydrocodone, hydromorphone, morphine) as soon as your pain improves. Please call our office if your pain is not adequately controlled. Ice Ice your operative site at least 5 times a day for 15-30 minutes at a time. Make sure you have a thin cloth between the ice or cooling unit and your skin to prevent little bite. This is especially important if you received a nerve block. Continue icing your operative site for the first 5-7 days after surgery, then as needed. Diet/Nausea/Vomiting Start by drinking clear liquids and eating crackers. If you can tolerate this, then you may resume your normal diet. If you feel nauseated or vomit, take Zofran/ondansetron (if prescribed). Please call our office if you have intractable nausea or vomiting, or, if after hours, you may go to the Emergency Room for help. Constipation Constipation is a common side effect of narcotic pain medication. If you have not had a bowel movement within 2 days after surgery, we recommend purchasing an over the counter laxative such as Milk of Magnesia, Dulcolax, or Miralax from a local pharmacy, and taking it as instructed. Call our clinic if any questions. Nerve block The anesthesia team sometimes places a nerve block to help with post-operative pain control. This results in significant numbness and inability to move the extremity. The nerve block usually wears off in 8-12 hours, but sometimes can last up to 24 hours. Please call our office if you are still unable to move your extremity after 24 hours, unless you received a pain pump to take home. Nerve blocks typically wear off quickly, so start taking pain medication as soon as you start feeling soreness near your surgical site. Weight bearing and Range of Motion. You may bear weight as tolerated on your Right leg with walker assitance. Physical therapy You will be given a prescription for physical therapy or occupational therapy at your first post-operative appointment. Typically, patients start therapy within 1 week of surgery Wound care and showering We will inspect your wound at your first post-operative visit, and may do a dressing change at that time. Most patients will be in a water-proof dressing that is removed 14 days after surgery. It is normal to see some dried blood on the dressing. Do not remove your dressing, paper strips or sutures yourself unless you are given permission. Showering is allowed the day after surgery. Do not scrub or remove any dressings. The wound should not be submerged underwater (i.e. in a bathtub or pool) until 4 weeks after surgery FELISHA stockings If you were given white stockings, these are to be worn at all times except to shower (on both legs) for the first 2 weeks after surgery. Driving You may not drive while taking narcotic pain medication or while in a cast, splint, sling or brace. You, the patient, need to make the final determination about when you are safe to drive, however, the earliest you may consider driving after surgery is below: Hand/Wrist/Elbow Surgery: 3 days Shoulder Surgery: 2 weeks Hip,/Knee/Ankle Surgery: 4 weeks Fracture repair: 6 weeks Return to Work Your return to work depends on what surgery was done and what type of work you do. Please bring any paperwork your employer needs completed to your first post-operative visit. Also, bring a description of your job duties, as this helps us to understand what risks you may face at work. Travel Avoid long distance travel (greater than 1 hour) in airplanes and cars for the first 6 weeks after surgery. If you must travel, you need to have a Doppler ultrasound done before you travel to rule out a blood clot in your legs. Follow-up You should have a follow-up appointment already scheduled 1-2 days after surgery. If not, please contact our office to make this appointment before you leave the hospital. When to call the office It is normal to have swelling and bruising in the limb that was operated on. This will improve with time. It is also normal to have fevers for the first 2 days after surgery. Reasons you should call your doctor include: Uncontrolled pain; Nausea, vomiting, or constipation that does not improve with medication; Fevers over 101.5, chills, sweats; Drainage or bleeding from the wound; Foul odor; Spreading areas of redness; Any other concerns Pending Studies at Discharge: No Stand-Alone Forms: [facility] Medications and DC Order Prescriptions: New oxycodone 5 mg tablet 5 mg PO Q4H MDD 2 tabs every 4 hours Qty: 28 RF: 0 cephalexin 500 mg capsule 500 mg PO TID 5 Days Qty: 15 RF: 0 aspirin [Aspirin Low Dose] 81 mg tablet,delayed release (DR/EC) 81 mg PO BID 30 Days Qty: 60 RF: 0 Continued multivitamin Tablet 1 tab PO QAM RF: 0 metformin 500 mg Tablet 1,000 mg PO BID RF: 0 levothyroxine 88 mcg Tablet 88 mcg PO QAM RF: 0 [id number] Tablet 1 tab PO PM RF: 0 amlodipine 10 mg Tablet 10 mg PO PM RF: 0 hydrochlorothiazide 25 mg Tablet 25 mg PO QAM RF: 0 losartan 100 mg Tablet 100 mg PO QAM RF: 0 esomeprazole magnesium [Nexium] 20 mg Capsule,Delayed Release(Dr/Ec) 40 mg PO QAM RF: 0 rosuvastatin 10 mg Tablet 10 mg PO PM RF: 0 Tradjenta 5 mg Tablet 5 mg PO QAM RF: 0 Jardiance 25 mg Tablet 25 mg PO QAM RF: 0 Changed ibuprofen 200 mg Tablet 600 mg PO TID Qty: 0 RF: 0 Discharge Orders: Discharge Order (Routine); Ordered 09/06/21 Ordered By: David Adrian Admission Data Admit Date/Time: 09/05/21 09:17 Attending Provider: Juliano Singh Admit Provider: Juliano Singh Primary Care Provider: Milla Olivera
[2021-09-06] MEDS ORDERED: IBUPROFEN 600 MG TAB PO SCH (21:00)
== END 2021-09-06 13:21 | disposition home health service (06) ==
LOC: ASU 04:56 → 3E 04:56